=== PATIENT | male | born 1960 | race Two or more races ===

== ENCOUNTER 2020-04-07 18:22 | Inpatient (IN) | payer BC, OTHER ==
[~2020-04-07] VITALS: Ht 175.3 cm; Wt 91.8 kg
[2020-04-07 22:29] LABS: White Blood Cell 11.8 10^3/uL (4.4-10.8)
[2020-04-07 22:32] LABS: Hematocrit 45.2 % (41.0-53.0); Hemoglobin 15.5 g/dL (13.5-17.5); Mean Corpuscular Hemoglobin 31.9 pg (28.0-32.0); Mean Corpuscular Hgb Conc. 34.2 g/dL (32.0-36.0); Platelet Count (auto) 378 10^3/uL (140-450); Red Blood Cells 4.85 10^6/uL (4.5-5.90); Red Cell Distribution Width 14.2 % (11.8-14.3)
[2020-04-07 22:48] LABS: Albumin 2.7 g/dL (3.4-5.0); Calcium 9.2 mg/dL (8.5-10.1); Potassium 3.5 mmol/L (3.5-5.1)
[2020-04-07 22:51] LABS: BUN/Creatinine Ratio 24.8; Bilirubin, Total 1.4 mg/dL (0.2-1.0); Total Protein 8.5 g/dL (6.4-8.2)
[2020-04-07 22:54] LABS: Basophils % (manual) 0 (0.0-2.0); Blast Cells 0; Eosinophils % (manual) 0 (0-7); Metamyelocytes % 0; Myelocytes % 0; Promyelocytes % 0; Reactive Lymphocytes 0
[2020-04-07 22:57] LABS: INR 1.02 (0.9-1.15); Partial Thromboplastin Time 27.8 sec (23.0-31.2)
[2020-04-07 23:13] LABS: Band Neutrophils % (manual) 4; Lymphocytes % (manual) 7 (10.0-50.0); Monocytes % (manual) 3 (0-12)
[2020-04-08] MEDS ORDERED: SODIUM CHLORIDE 0.9% 1,000 ML IV ONE (00:15)
[2020-04-08] MEDS ORDERED: AZITHROMYCIN 500MG/ 250ML 250 ML IV ONE (00:15)
[2020-04-08] MEDS ORDERED: DexAMETHasone SOD PHOS 10MG/1ML VIAL INJ IV ONE (00:15)
[2020-04-08] MEDS ORDERED: ALBUTEROL SULF HFA 90MCG INH 200DOSE IN PRN (02:00)
[2020-04-08] MEDS ORDERED: DOCUSATE SOD 100 MG CAP PO PRN (02:00)
[2020-04-08] MEDS ORDERED: ONDANSETRON HCL 4 MG/2 ML VIAL IV PRN (02:00)
[2020-04-08] MEDS ORDERED: NITROGLYCERIN 0.4 MG SL TAB SL PRN (02:00)
[2020-04-08] MEDS ORDERED: ACETAMINOPHEN 500 MG TAB PO PRN (02:00)
[2020-04-08] MEDS ORDERED: MORPHINE SULF INJ 2 MG/ML SYRINGE 1ML IV PRN (02:00)
[2020-04-08 02:05] LABS: Lactic Acid w/Reflex 2.1 mmol/L (0.4-2.0)
[2020-04-08 03:29] LABS: Basophils # (auto) 0 10 ^3/uL (0-0.2); Basophils % (auto) 0.2 % (0.0-2.0); Eosinophils # (auto) 0 10 ^3/uL (0-0.8); Eosinophils % (auto) 0.2 % (0.0-7.0); Hematocrit 44.3 % (41.0-53.0); Hemoglobin 15.1 g/dL (13.5-17.5); Lymphocytes # (auto) 0.5 10 ^3/uL (0.4-5.4); Lymphocytes % (auto) 4.7 % (10.0-50.0); Mean Corpuscular Hemoglobin 31.8 pg (28.0-32.0); Mean Corpuscular Hgb Conc. 34.1 g/dL (32.0-36.0); Mean Corpuscular Volume 93.3 fL (80.0-100.0); Monocytes # (auto) 0.6 10 ^3/uL (0-1.3); Monocytes % (auto) 4.8 % (0.0-12.0); Neutrophils # (auto) 10.5 10 ^3/uL (1.6-8.6); Neutrophils % (auto) 90.1 % (37.0-80.0); Nucleated Red Blood Cells % 0.4 %; Platelet Count (auto) 326 10^3/uL (140-450); Red Blood Cells 4.75 10^6/uL (4.5-5.90); Red Cell Distribution Width 13.5 % (11.8-14.3); White Blood Cell 11.6 10^3/uL (4.4-10.8)
[2020-04-08 03:38] LABS: Urine Bacteria FEW /hpf (None Seen); Urine Blood 2+ /uL (Negative); Urine Hyaline Cast FEW /lpf (0 - 2); Urine Mucus FEW (None Seen); Urine Specific Gravity 1.028 (1.001-1.035); Urine WBC 8 /hpf (0 - 3)
[2020-04-08 03:47] LABS: Albumin 2.6 g/dL (3.4-5.0); Calcium 8.6 mg/dL (8.5-10.1); Magnesium 2.9 mg/dL (1.6-2.6); Potassium 3.4 mmol/L (3.5-5.1)
[2020-04-08 03:50] LABS: BUN/Creatinine Ratio 23.6; Bilirubin, Total 1.4 mg/dL (0.2-1.0); Total Protein 8.3 g/dL (6.4-8.2)
[2020-04-08] MEDS: SODIUM CHLOR 0.9% PF (SALINE LOCK) 10ML VIAL/SYR IV SCH ×2 (04:05→13:02)
[2020-04-08] MEDS: ZINC SULFATE 220mg CAP or TAB PO SCH (08:02)
[2020-04-08] MEDS: MULTIPLE VITAMIN TAB PO SCH (08:02)
[2020-04-08] MEDS: ASCORBIC ACID 1,000 MG TAB PO SCH (08:02)
[2020-04-08] MEDS: CHOLECALCIFEROL (VITD3) 2,000 UNIT CAP PO SCH (08:03)
[2020-04-08] MEDS: ENOXAPARIN SOD 40 MG/0.4 ML SYRINGE SC SCH (08:08)
[2020-04-08] MEDS: FAMOTIDINE (10MG/ML) 2ML VL IV SCH (08:08)
[2020-04-08] MEDS: DexAMETHasone SOD PHOS 10MG/1ML VIAL INJ IV SCH (08:09)
[2020-04-08] MEDS ORDERED: cefTRIAXone 1GM/50ML D5W 50 ML IV SCH (09:00)
[2020-04-08] MEDS: DOXYCYCLINE 100MG/250ML 250 ML IV SCH (09:24)
[2020-04-08] MEDS ORDERED: FUROSEMIDE 20 MG/2 ML VIAL IV ONE (17:30)
[2020-04-08] MEDS ORDERED: POTASSIUM CHL 20 Meq TABLET PO ONE (17:30)
[2020-04-08] MEDS: BUDESONIDE (INHALATION) 180 MCG IH IN SCH (22:00)
[2020-04-09 00:28] VITALS: BP 137/91
[2020-04-09] MEDS: FAMOTIDINE (10MG/ML) 2ML VL IV SCH ×3 (00:31→22:18)
[2020-04-09] MEDS: FUROSEMIDE 20 MG/2 ML VIAL IV SCH ×3 (00:31→18:02)
[2020-04-09] MEDS: DOXYCYCLINE 100MG/250ML 250 ML IV SCH ×3 (00:32→22:18)
[2020-04-09] MEDS: SODIUM CHLOR 0.9% PF (SALINE LOCK) 10ML VIAL/SYR IV SCH ×4 (00:32→22:18)
[2020-04-09] MEDS: ATORVASTATIN 20 MG TAB PO SCH ×2 (00:33→22:18)
[2020-04-09 02:43] VITALS: BP 137/91
[2020-04-09 05:24] VITALS: BP 122/79
[2020-04-09 07:39] LABS: Hematocrit 40.9 % (41.0-53.0); Hemoglobin 13.9 g/dL (13.5-17.5); Mean Corpuscular Hemoglobin 31.5 pg (28.0-32.0); Mean Corpuscular Hgb Conc. 34.1 g/dL (32.0-36.0); Mean Corpuscular Volume 92.4 fL (80.0-100.0); Platelet Count (auto) 378 10^3/uL (140-450); Red Blood Cells 4.43 10^6/uL (4.5-5.90); Red Cell Distribution Width 13.5 % (11.8-14.3)
[2020-04-09 07:42] LABS: Potassium 3.1 mmol/L (3.5-5.1)
[2020-04-09 07:44] LABS: Albumin 2.5 g/dL (3.4-5.0); BUN/Creatinine Ratio 27.6
[2020-04-09 07:47] LABS: Basophils % (manual) 0 (0.0-2.0); Blast Cells 0; Eosinophils % (manual) 0 (0-7); Promyelocytes % 0; Reactive Lymphocytes 0
[2020-04-09 08:00] VITALS: BP 119/79
[2020-04-09 08:07] LABS: Bilirubin, Total 0.7 mg/dL (0.2-1.0); Calcium 8.3 mg/dL (8.5-10.1); Total Protein 7.4 g/dL (6.4-8.2)
[2020-04-09] MEDS: BUDESONIDE (INHALATION) 180 MCG IH IN SCH ×2 (10:00→22:00)
[2020-04-09] MEDS: POTASSIUM CHL 20 Meq TABLET PO SCH (10:00)
[2020-04-09] MEDS: ZINC SULFATE 220mg CAP or TAB PO SCH (10:13)
[2020-04-09] MEDS: ASPirin 81 mg TAB PO SCH (10:13)
[2020-04-09] MEDS: MULTIPLE VITAMIN TAB PO SCH (10:13)
[2020-04-09] MEDS: DexAMETHasone SOD PHOS 10MG/1ML VIAL INJ IV SCH (10:13)
[2020-04-09] MEDS: ENOXAPARIN SOD 40 MG/0.4 ML SYRINGE SC SCH (10:14)
[2020-04-09] MEDS: CHOLECALCIFEROL (VITD3) 2,000 UNIT CAP PO SCH (10:14)
[2020-04-09] MEDS: ASCORBIC ACID 1,000 MG TAB PO SCH (10:14)
[2020-04-09] MEDS ORDERED: POTASSIUM CHL 20MEQ/100ML 100 ML IV ONE (10:30)
[2020-04-09] MEDS ORDERED: POTASSIUM CHL 20 Meq TABLET PO ONE (10:30)
[2020-04-09] MEDS ORDERED: guaiFENesin-DM 100/10mg/5ml SYR PO PRN (10:30)
[2020-04-09] MEDS: guaiFENesin-DM 100/10mg/5ml SYR PO PRN ×2 (12:38→20:36)
[2020-04-09 13:26] LABS: Band Neutrophils % (manual) 8; Lymphocytes % (manual) 5 (10.0-50.0); Metamyelocytes % 1; Monocytes % (manual) 5 (0-12); Myelocytes % 1
[2020-04-09 16:00] VITALS: BP 137/94
[2020-04-10] VITALS: BP 157/93
[2020-04-10] MEDS ORDERED: hydrALAZINE HCL 20 MG/ML VL IV PRN (04:00)
[2020-04-10] MEDS: SODIUM CHLOR 0.9% PF (SALINE LOCK) 10ML VIAL/SYR IV SCH ×2 (06:00→14:50)
[2020-04-10] MEDS: FUROSEMIDE 20 MG/2 ML VIAL IV SCH ×2 (06:47→18:00)
[2020-04-10 07:04] LABS: Hematocrit 39.9 % (41.0-53.0); Hemoglobin 13.9 g/dL (13.5-17.5); Mean Corpuscular Hemoglobin 32.1 pg (28.0-32.0); Mean Corpuscular Hgb Conc. 34.8 g/dL (32.0-36.0); Mean Corpuscular Volume 92.3 fL (80.0-100.0); Platelet Count (auto) 382 10^3/uL (140-450); Red Blood Cells 4.32 10^6/uL (4.5-5.90); Red Cell Distribution Width 13.4 % (11.8-14.3); White Blood Cell 12.8 10^3/uL (4.4-10.8)
[2020-04-10 07:11] LABS: Band Neutrophils % (manual) 0; Basophils % (manual) 0 (0.0-2.0); Blast Cells 0; Eosinophils % (manual) 0 (0-7); Metamyelocytes % 0; Promyelocytes % 0; Reactive Lymphocytes 0
[2020-04-10] MEDS: CEFEPIME 1 GM in SODIUM CHL 0.9% 50 ML IV SCH ×2 (07:20→14:00)
[2020-04-10 07:36] LABS: Lymphocytes % (manual) 5 (10.0-50.0); Monocytes % (manual) 4 (0-12); Myelocytes % 1
[2020-04-10 07:49] LABS: BUN/Creatinine Ratio 26.4; Calcium 8.5 mg/dL (8.5-10.1); Potassium 3.7 mmol/L (3.5-5.1)
[2020-04-10 08:00] VITALS: BP 123/81
[2020-04-10] MEDS ORDERED: ENOXAPARIN SOD 40 MG/0.4 ML SYRINGE SC SCH (10:00)
[2020-04-10] MEDS: CHOLECALCIFEROL (VITD3) 2,000 UNIT CAP PO SCH (10:00)
[2020-04-10] MEDS: BUDESONIDE (INHALATION) 180 MCG IH IN SCH (10:00)
[2020-04-10] MEDS: FAMOTIDINE (10MG/ML) 2ML VL IV SCH (11:19)
[2020-04-10] MEDS: POTASSIUM CHL 20 Meq TABLET PO SCH (11:19)
[2020-04-10] MEDS: ZINC SULFATE 220mg CAP or TAB PO SCH (11:19)
[2020-04-10] MEDS: DexAMETHasone SOD PHOS 10MG/1ML VIAL INJ IV SCH (11:19)
[2020-04-10] MEDS: ASPirin 81 mg TAB PO SCH (11:19)
[2020-04-10] MEDS: MULTIPLE VITAMIN TAB PO SCH (11:20)
[2020-04-10] MEDS: ASCORBIC ACID 1,000 MG TAB PO SCH (11:20)
[2020-04-10] MEDS ORDERED: ALBU108A5 IN (15:17)
[2020-04-10] MEDS ORDERED: FAMO20TA10 PO (15:17)
[2020-04-10] MEDS ORDERED: DEX4T PO (15:17)
[2020-04-10] MEDS ORDERED: DEXT1SYP9 PO (15:17)
[2020-04-10] MEDS ORDERED: LEVO750T8 PO (15:17)
[2020-04-10] MEDS ORDERED: POTA-220 PO (15:17)
[2020-04-10] MEDS ORDERED: DOCU100C8 PO (15:17)
[2020-04-10] MEDS ORDERED: ATOR20TA50 PO (15:17)
[2020-04-10] MEDS ORDERED: ZINC100T5 PO (15:17)
[2020-04-10] MEDS ORDERED: MULTTAB99 PO (15:17)
[2020-04-10] MEDS ORDERED: CHOL1CAP47 PO (15:17)
[2020-04-10] MEDS ORDERED: ASPI81CH43 PO (15:17)
[2020-04-10] MEDS ORDERED: ASCO10003 PO (15:17)
[2020-04-10 16:00] VITALS: BP 141/89
== END 2020-04-10 19:20 | disposition home or self-care (01) | DRG 177 ==
LOC: ER 18:22 → TELE 18:23 → TELE-EAST 04-08 22:20
PROVIDERS: ADMIT Nurse Practitioner Family; ATTEND Nurse Practitioner Family
DX: U07.1 COVID-19 (principal); J96.01 Acute respiratory failure with hypoxia; J12.89 Other viral pneumonia; N30.01 Acute cystitis with hematuria; R74.01 Elevation of levels of liver transaminase levels; E87.6 Hypokalemia; D35.02 Benign neoplasm of left adrenal gland; I10 Essential (primary) hypertension; K40.20 Bilateral inguinal hernia, without obstruction or gangrene, not specified as recurrent; K42.9 Umbilical hernia without obstruction or gangrene; K76.0 Fatty (change of) liver, not elsewhere classified; Z79.899 Other long term (current) drug therapy; Z86.19 Personal history of other infectious and parasitic diseases
CPT/HCPCS: 36415; 71045; 74176; 80048; 80053; 81001; 83036; 83605; 83735; 83880; 84443; 85007; 85025; 85027; 85379; 85610; 85730; 87040; 87086; 87426; 96365; 96366; 96367; 96375; 96376; G0378; J0696; J1100; J3480; J3490

== ENCOUNTER 2021-03-28 13:49 | Inpatient (IN) | payer BC ==
[~2021-03-28] VITALS: Ht 170.2 cm; Wt 96.5 kg
[~2021-03-28 13:49] MED LIST: ALBU108A5 IN; ASCO10003 PO; ASPI81CH43 PO; ATOR20TA50 PO; CHOL1CAP47 PO; DEX4T PO; DEXT1SYP9 PO; DOCU100C10 PO; FAMO20TA10 PO; LEVO750T8 PO; MULTTAB99 PO; POTA-220 PO; ZINC100T5 PO
[2021-03-28 14:50] LABS: Basophils # (auto) 0.1 10 ^3/uL (0-0.2); Basophils % (auto) 0.3 % (0.0-2.0); Eosinophils # (auto) 0 10 ^3/uL (0-0.8); Hematocrit 45.5 % (41.0-53.0); Hemoglobin 15.1 g/dL (13.5-17.5); Lymphocytes # (auto) 0.6 10 ^3/uL (0.4-5.4); Lymphocytes % (auto) 3.1 % (10.0-50.0); Mean Corpuscular Hemoglobin 31.5 pg (28.0-32.0); Mean Corpuscular Hgb Conc. 33.2 g/dL (32.0-36.0); Monocytes % (auto) 4.7 % (0.0-12.0); Neutrophils # (auto) 18.7 10 ^3/uL (1.6-8.6); Neutrophils % (auto) 91.9 % (37.0-80.0); Red Blood Cells 4.79 10^6/uL (4.5-5.90); Red Cell Distribution Width 13.7 % (11.8-14.3); White Blood Cell 20.3 10^3/uL (4.4-10.8)
[2021-03-28 15:09] LABS: Albumin 3.9 g/dL (3.4-5.0); BUN/Creatinine Ratio 10.6; Calcium 8.7 mg/dL (8.5-10.1); Potassium 3.5 mmol/L (3.5-5.1)
[2021-03-28 15:12] LABS: Bilirubin, Total 1.6 mg/dL (0.2-1.0); Total Protein 7.6 g/dL (6.4-8.2)
[2021-03-28 16:21] LABS: Urine Bacteria MANY /hpf (None Seen); Urine Blood 3+ /uL (Negative); Urine Mucus MODERATE (None Seen); Urine Specific Gravity 1.019 (1.001-1.035); Urine WBC 1037 /hpf (0 - 3); Urine WBC Clumps PRESENT /hpf (None Seen)
[2021-03-28] MEDS ORDERED: cefTRIAXone 1GM/50ML D5W 50 ML IV ONE (16:30)
[2021-03-28] MEDS ORDERED: SODIUM CHLORIDE 0.9% 1,000 ML IV ONE (16:30)
[2021-03-28] MEDS ORDERED: ONDANSETRON HCL 4 MG/2 ML VIAL IV ONE (16:30)
[2021-03-28] MEDS ORDERED: NITROGLYCERIN 0.4 MG SL TAB SL PRN ×2 (18:45→22:45)
[2021-03-28] MEDS ORDERED: ONDANSETRON HCL 4 MG/2 ML VIAL IV PRN (18:45)
[2021-03-28] MEDS ORDERED: MORPHINE SULFATE INJECTION 2 MG/ML SYRG IV PRN ×4 (18:45→22:45)
[2021-03-28] MEDS ORDERED: LOSA-39 PO (19:21)
[2021-03-28] MEDS ORDERED: METO1TAB9 PO (19:21)
[2021-03-28] MEDS ORDERED: LABETALOL HCL 5 MG/ML 4ML SYRINGE IV ONE (19:30)
[2021-03-28] MEDS ORDERED: LABETALOL HCL 5 MG/ML 4ML SYRINGE IV PRN (22:00)
[2021-03-28] MEDS ORDERED: NIFEdipine ER 30 MG TAB PO ONE (22:45)
[2021-03-28] MEDS ORDERED: LORazepam 0.5 MG TAB PO PRN (22:45)
[2021-03-28] MEDS ORDERED: DOCUSATE SOD 100 MG CAP PO PRN (22:45)
[2021-03-28] MEDS ORDERED: ALUM & MAG HYDROX-SIMETH LIQ(MAALOX) 30 ML PO PRN (22:45)
[2021-03-28] MEDS ORDERED: hydrALAZINE HCL 20 MG/ML VL IV PRN (22:45)
[2021-03-28] MEDS ORDERED: SODIUM CHLORIDE 0.9% 1,000 ML IV SCH (22:45)
[2021-03-28] MEDS ORDERED: METOPROLOL SUCCINATE XL 50 MG TAB PO ONE (22:45)
[2021-03-28] MEDS ORDERED: METOCLOPRAMIDE HCL 5MG/ml INJ 2ml VIAL IV PRN (22:45)
[2021-03-28] MEDS ORDERED: HYDROcodone-ACET 5/325MG TAB PO PRN (22:45)
[2021-03-28 23:09] LABS: Cholesterol 142 mg/dL (< 200)
[2021-03-28 23:11] LABS: HDL Cholesterol 56 mg/dL (40-59); LDL Cholesterol 71 mg/dL (< 100); Triglycerides 76 mg/dL (< 150)
[2021-03-28 23:18] LABS: Alcohol, Urine < 3.0 mg/dL (0-10); Amphetamine Screen, Urine NEGATIVE (NEGATIVE); Barbiturate Scree,Urine NEGATIVE (NEGATIVE); Benzodiazephine Screen, Urine NEGATIVE (NEGATIVE); Cannabinoid Screen, Urine NEGATIVE (NEGATIVE); Cocaine Screen, Urine NEGATIVE (NEGATIVE); Opiate Scree,Urine NEGATIVE (NEGATIVE); Phencyclidine Screen, Urine NEGATIVE (NEGATIVE)
[2021-03-29 05:00] VITALS: BP 144/87
[2021-03-29 07:27] LABS: Basophils # (auto) 0 10 ^3/uL (0-0.2); Basophils % (auto) 0.2 % (0.0-2.0); Eosinophils # (auto) 0 10 ^3/uL (0-0.8); Hematocrit 42.1 % (41.0-53.0); Lymphocytes # (auto) 0.6 10 ^3/uL (0.4-5.4); Lymphocytes % (auto) 3.3 % (10.0-50.0); Mean Corpuscular Hemoglobin 31.6 pg (28.0-32.0); Mean Corpuscular Hgb Conc. 33.3 g/dL (32.0-36.0); Mean Corpuscular Volume 94.9 fL (80.0-100.0); Monocytes # (auto) 0.6 10 ^3/uL (0-1.3); Monocytes % (auto) 3.8 % (0.0-12.0); Neutrophils # (auto) 15.7 10 ^3/uL (1.6-8.6); Neutrophils % (auto) 92.7 % (37.0-80.0); Red Blood Cells 4.43 10^6/uL (4.5-5.90); Red Cell Distribution Width 13.8 % (11.8-14.3)
[2021-03-29 07:41] LABS: Albumin 3.3 g/dL (3.4-5.0); Calcium 8.6 mg/dL (8.5-10.1); Potassium 3.3 mmol/L (3.5-5.1); Uric Acid 6.9 mg/dL (3.5-7.2)
[2021-03-29 07:44] LABS: INR 1.13 (0.9-1.15); Partial Thromboplastin Time 32.3 sec (23.6-33.0)
[2021-03-29 07:46] LABS: BUN/Creatinine Ratio 16.5; Bilirubin, Total 1.2 mg/dL (0.2-1.0); Phosphorus 1.4 mg/dL (2.5-4.90); Total Protein 7.8 g/dL (6.4-8.2)
[2021-03-29 09:00] VITALS: BP 139/78
[2021-03-29] MEDS: NIFEdipine ER 30 MG TAB PO SCH (09:13)
[2021-03-29] MEDS: ASPirin 81 mg TAB PO SCH (09:13)
[2021-03-29] MEDS: METOPROLOL SUCCINATE XL 50 MG TAB PO SCH (09:14)
[2021-03-29] MEDS: ENOXAPARIN SOD 40 MG/0.4 ML SYRINGE SC SCH (09:14)
[2021-03-29 13:05] VITALS: BP 130/68
[2021-03-29 17:05] VITALS: BP 118/68
[2021-03-29] MEDS ORDERED: POTASSIUM CHL 20 Meq TABLET PO ONE (17:45)
[2021-03-29] MEDS: SODIUM CHLORIDE 0.9% 1,000 ML IV SCH (18:01)
[2021-03-29] MEDS: TAMSULOSIN HYDROCHLORIDE 0.4 MG CAP PO SCH (18:02)
[2021-03-29 22:00] VITALS: BP 139/75
[2021-03-29] MEDS: ATORVASTATIN 20 MG TAB PO SCH (22:26)
[2021-03-30] MEDS: ACETAMINOPHEN 325 MG TAB PO PRN ×2 (01:03→16:55)
[2021-03-30] MEDS: SODIUM CHLORIDE 0.9% 1,000 ML IV SCH ×2 (06:09→20:26)
[2021-03-30 09:00] VITALS: BP 129/63
[2021-03-30 09:00] LABS: Potassium 3.5 mmol/L (3.5-5.1)
[2021-03-30 09:05] LABS: BUN/Creatinine Ratio 21.3; Calcium 8.1 mg/dL (8.5-10.1)
[2021-03-30] MEDS: NIFEdipine ER 30 MG TAB PO SCH (11:00)
[2021-03-30] MEDS: METOPROLOL SUCCINATE XL 50 MG TAB PO SCH (11:00)
[2021-03-30] MEDS: ASPirin 81 mg TAB PO SCH (11:00)
[2021-03-30] MEDS: cefTRIAXone 1GM/50ML D5W 50 ML IV SCH (11:00)
[2021-03-30 13:00] VITALS: BP 127/74
[2021-03-30] MEDS: ENOXAPARIN SOD 40 MG/0.4 ML SYRINGE SC SCH (16:38)
[2021-03-30 17:00] VITALS: BP 145/80
[2021-03-30] MEDS: TAMSULOSIN HYDROCHLORIDE 0.4 MG CAP PO SCH (18:50)
[2021-03-30] MEDS: ATORVASTATIN 20 MG TAB PO SCH (21:23)
[2021-03-30 22:00] VITALS: BP 143/82
[2021-03-31 05:00] VITALS: BP 134/77
[2021-03-31 08:11] LABS: Potassium 3.4 mmol/L (3.5-5.1)
[2021-03-31 08:16] LABS: BUN/Creatinine Ratio 13.6
[2021-03-31 09:00] VITALS: BP 147/83
[2021-03-31] MEDS: cefTRIAXone 1GM/50ML D5W 50 ML IV SCH (09:00)
[2021-03-31] MEDS: METOPROLOL SUCCINATE XL 50 MG TAB PO SCH (10:00)
[2021-03-31] MEDS: ENOXAPARIN SOD 40 MG/0.4 ML SYRINGE SC SCH (10:00)
[2021-03-31] MEDS: NIFEdipine ER 30 MG TAB PO SCH (10:00)
[2021-03-31] MEDS: ASPirin 81 mg TAB PO SCH (10:00)
[2021-03-31] MEDS ORDERED: POTASSIUM CHL 20 Meq TABLET PO ONE (10:30)
[2021-03-31 13:00] VITALS: BP 124/68
[2021-03-31 17:00] VITALS: BP 127/72
[2021-03-31] MEDS: TAMSULOSIN HYDROCHLORIDE 0.4 MG CAP PO SCH (18:00)
[2021-03-31] MEDS: ATORVASTATIN 20 MG TAB PO SCH (21:32)
[2021-03-31 22:00] VITALS: BP 115/65
[2021-04-01 05:00] VITALS: BP 135/76
[2021-04-01 07:39] LABS: Basophils # (auto) 0 10 ^3/uL (0-0.2); Basophils % (auto) 0.3 % (0.0-2.0); Eosinophils # (auto) 0.1 10 ^3/uL (0-0.8); Eosinophils % (auto) 0.9 % (0.0-7.0); Hematocrit 41.6 % (41.0-53.0); Hemoglobin 13.5 g/dL (13.5-17.5); Lymphocytes # (auto) 0.9 10 ^3/uL (0.4-5.4); Lymphocytes % (auto) 13.1 % (10.0-50.0); Mean Corpuscular Hemoglobin 30.7 pg (28.0-32.0); Mean Corpuscular Hgb Conc. 32.5 g/dL (32.0-36.0); Mean Corpuscular Volume 94.5 fL (80.0-100.0); Monocytes # (auto) 0.7 10 ^3/uL (0-1.3); Monocytes % (auto) 10.7 % (0.0-12.0); Nucleated Red Blood Cells % 0.2 %; Red Blood Cells 4.41 10^6/uL (4.5-5.90); Red Cell Distribution Width 13.7 % (11.8-14.3); White Blood Cell 6.7 10^3/uL (4.4-10.8)
[2021-04-01] MEDS: cefTRIAXone 1GM/50ML D5W 50 ML IV SCH (09:00)
[2021-04-01] MEDS: ENOXAPARIN SOD 40 MG/0.4 ML SYRINGE SC SCH (10:00)
[2021-04-01] MEDS: ASPirin 81 mg TAB PO SCH (10:00)
[2021-04-01] MEDS: METOPROLOL SUCCINATE XL 50 MG TAB PO SCH (10:00)
[2021-04-01] MEDS: NIFEdipine ER 30 MG TAB PO SCH (10:00)
[2021-04-01 17:00] VITALS: BP 135/80
[2021-04-01] MEDS: TAMSULOSIN HYDROCHLORIDE 0.4 MG CAP PO SCH (18:00)
[2021-04-01 22:00] VITALS: BP 132/81
[2021-04-01] MEDS: ATORVASTATIN 20 MG TAB PO SCH (22:29)
[2021-04-02 05:00] VITALS: BP 123/73
[2021-04-02 07:53] LABS: Hematocrit 41.7 % (41.0-53.0); Mean Corpuscular Hemoglobin 31.6 pg (28.0-32.0); Mean Corpuscular Hgb Conc. 33.7 g/dL (32.0-36.0); Potassium 3.5 mmol/L (3.5-5.1); Red Blood Cells 4.43 10^6/uL (4.5-5.90); Red Cell Distribution Width 13.6 % (11.8-14.3); White Blood Cell 7.3 10^3/uL (4.4-10.8)
[2021-04-02 08:09] LABS: Basophils % (manual) 0 (0.0-2.0); Blast Cells 0; Promyelocytes % 0; Reactive Lymphocytes 0
[2021-04-02 08:13] LABS: BUN/Creatinine Ratio 22.1; Calcium 8.4 mg/dL (8.5-10.1)
[2021-04-02 09:00] VITALS: BP 126/76
[2021-04-02 09:00] LABS: Band Neutrophils % (manual) 5; Eosinophils % (manual) 3 (0-7); Lymphocytes % (manual) 19 (10.0-50.0); Metamyelocytes % 5; Monocytes % (manual) 6 (0-12); Myelocytes % 3
[2021-04-02] MEDS: cefTRIAXone 1GM/50ML D5W 50 ML IV SCH (09:00)
[2021-04-02] MEDS: METOPROLOL SUCCINATE XL 50 MG TAB PO SCH (10:00)
[2021-04-02] MEDS ORDERED: LOSARTAN POTASSIUM 50 MG TAB PO ONE (10:00)
[2021-04-02] MEDS: ASPirin 81 mg TAB PO SCH (10:00)
[2021-04-02 13:00] VITALS: BP 116/70
[2021-04-02 17:00] VITALS: BP 133/81
[2021-04-02] MEDS: TAMSULOSIN HYDROCHLORIDE 0.4 MG CAP PO SCH (18:00)
[2021-04-02] MEDS: ATORVASTATIN 20 MG TAB PO SCH (22:00)
[2021-04-02 22:26] VITALS: BP 104/67
[2021-04-03 05:30] VITALS: BP 111/75
[2021-04-03 09:00] VITALS: BP 123/84
[2021-04-03] MEDS ORDERED: LOSARTAN POTASSIUM 50 MG TAB PO SCH (10:00)
[2021-04-03] MEDS: METOPROLOL SUCCINATE XL 50 MG TAB PO SCH (10:00)
[2021-04-03] MEDS: ASPirin 81 mg TAB PO SCH (10:00)
[2021-04-03] MEDS ORDERED: TAM04C PO (10:25)
[2021-04-03] MEDS ORDERED: METO-6 PO (10:25)
[2021-04-03] MEDS ORDERED: SULF400T11 PO (10:27)
[2021-04-03] MEDS ORDERED: SULFAMETHOX W/TRIMETH(800/160MG) DS TAB PO ONE (10:30)
[2021-04-03 12:54] VITALS: BP 123/84
[2021-04-03 13:17] VITALS: BP 123/80
== END 2021-04-03 17:00 | disposition home or self-care (01) | DRG 872 ==
LOC: ER 13:49 → TELE 18:44 → TELE-CENTR 23:17 → CENTRAL 03-29 00:05
PROVIDERS: ADMIT Hospitalist; ATTEND Internal Medicine
DX: A41.51 Sepsis due to Escherichia coli [E. coli] (principal); N17.9 Acute kidney failure, unspecified; I16.9 Hypertensive crisis, unspecified; N13.6 Pyonephrosis; R65.20 Severe sepsis without septic shock; N13.9 Obstructive and reflux uropathy, unspecified; N18.2 Chronic kidney disease, stage 2 (mild); E66.01 Morbid (severe) obesity due to excess calories; N32.0 Bladder-neck obstruction; E88.81 Metabolic syndrome and other insulin resistance; E11.22 Type 2 diabetes mellitus with diabetic chronic kidney disease; D35.02 Benign neoplasm of left adrenal gland; I25.10 Atherosclerotic heart disease of native coronary artery without angina pectoris; M19.90 Unspecified osteoarthritis, unspecified site; Z20.822 Contact with and (suspected) exposure to COVID-19; I12.9 Hypertensive chronic kidney disease with stage 1 through stage 4 chronic kidney disease, or unspecified chronic kidney disease; E78.5 Hyperlipidemia, unspecified; K76.0 Fatty (change of) liver, not elsewhere classified; N21.0 Calculus in bladder; N40.0 Benign prostatic hyperplasia without lower urinary tract symptoms; Z79.82 Long term (current) use of aspirin; Z68.33 Body mass index [BMI] 33.0-33.9, adult; Z82.49 Family history of ischemic heart disease and other diseases of the circulatory system; Z83.3 Family history of diabetes mellitus; Z86.16 Personal history of COVID-19; Z87.440 Personal history of urinary (tract) infections; Z79.899 Other long term (current) drug therapy
CPT/HCPCS: 36415; 74176; 80048; 80053; 80061; 80307; 81001; 83036; 83690; 83735; 83880; 84100; 84484; 84550; 85007; 85025; 85027; 85379; 85610; 85730; 87040; 87077; 87086; 87088; 87186; 87426; 93005; G0378; J0696